=== PATIENT | female | born 1970 | race African-American/Black ===

== ENCOUNTER 2017-11-10 11:19 | Outpatient (CLI) | payer OTHER | END 2017-11-10 11:20 | disposition home or self-care (01) | LOC: DTY/OP 11:19 | PROVIDERS: ATTEND Surgery | DX: E66.01 Morbid (severe) obesity due to excess calories (principal) | CPT/HCPCS: 97802 ==

== ENCOUNTER 2018-02-02 11:30 | Inpatient (IN) | payer BC ==
[2018-02-10] MEDS ORDERED: Fentanyl 250 MCG/5 ML VIAL ONE (06:30)
[2018-02-10] MEDS ORDERED: Heparin 5,000 UNITS/ML VIAL ONE (06:44)
[2018-02-10] MEDS ORDERED: CEFAZOLIN 2 GM/50 ML BAG ONE (06:44)
[2018-02-10] MEDS ORDERED: Bupivacaine/Epinephrine 0.25% 30 ML VIAL ONE (07:18)
--- NOTE | 2018-02-10 07:46 | RAD ---
TWO VIEWS OF THE CHEST: COMPARISON: 07/20/2014. HISTORY: Preoperative radiograph. FINDINGS: Two views of the chest show normal sized cardiomediastinal silhouette. There is no evidence of consol idation, mass, or pleural effusion. The bones are unremarkable. IMPRESSION: No evidence of acute cardiopulmonary disease. POS: [facility]
--- NOTE | 2018-02-10 09:40 | OP ---
DATE OF PROCEDURE: 02/10/2018 PREOPERATIVE DIAGNOSIS: Morbid obesity with a body mass index of 56. POSTOPERATIVE DIAGNOSIS: Morbid obesity with a body mass index of 56. PROCEDURE: 1. Laparoscopic sleeve gastrectomy with [place] staple line reinforcements and 38 [place] bougie. 2. EGD. SURGEON: Dr. Chava Winters ANESTHESIA: General. ESTIMATED BLOOD LOSS: 50 mL. COMPLICATIONS: None. FINDINGS: Normal postoperative EGD. TECHNIQUE: The patient was taken to the operating room and placed supine on the table. After genera l anesthetic was obtained, arms and legs are double strapped to bariatric table. OG tube was used to decompress the stomach. The abdomen is prepped and draped in a sterile fashion. A left subcostal 5 -mm Optiview trocar was placed in the usual fashion. High-flow pneumoperitoneum was obtained. Left and right abdominal 12-mm ports as well as a right subcostal 5-mm port were placed under direct visua lization. A 5 mm incision was made at the xiphoid and Nathansen's used to raise the liver off the GE junction. The short gastrics were taken down mid body of stomach to left scarlet of the diaphragm. Le ft scarlet, posterior fundus, angle of His is completely dissected. Short gastrics were taken down to a distance of 6 cm proximal to the pylorus. OG tube was removed and the 38 bougie is brought in and i ts tip left in the antrum of the stomach. Multiple loads of an [place] stapling device are used to f orm the sleeve. The first is a green load fired up at a distance of 6 cm proximal to the pylorus ang led up towards the incisura. Multiple loads were then fired along the bougie, stomach is completely transected at the angle of His. The stomach was removed from the left abdominal incision. This fasc ial defect closing GraNee needle and Vicryl tie. No bleeding on the staple line. EGD scope was pass ed into the esophagus, stomach to the level of the duodenum without obstruction. There was no strict ure at the incisura. There is no bleeding internal or external on the staple line. EGD scope was us ed to decompress the stomach, it was pulled and removed. All port sites were infiltrating local anes thetic. The Nathansen retractor was removed under direct visualization without bleeding. All ports are removed under direct camera visualization without bleeding and pneumoperitoneum was let down. Th e Vicryl was used to close the fascial defect from the left abdominal incision. All incisions were c losed using 4-0 Monocryl and Dermabond. The patient was en route to recovery in stable condition. A ll instrument counts, needle counts, lap counts are correct.
[2018-02-10] MEDS ORDERED: Promethazine HCl 25 MG/ML VIAL SLOW IVP PRN (09:51)
[2018-02-10] MEDS ORDERED: Promethazine HCl 25 MG/ML VIAL IM PRN (09:51)
[2018-02-10] MEDS ORDERED: Ondansetron HCl/PF 4 MG/2 ML Vial IVP PRN (09:51)
[2018-02-10] MEDS ORDERED: Promethazine HCl 25 MG/ML VIAL ONE (10:33)
[2018-02-10] MEDS ORDERED: Dextrose 5% in Water 1,000 ML IV PRN (11:12)
[2018-02-10] MEDS ORDERED: Dextrose 50% Abboject 50 ML SYRINGE SLOW IVP PRN (11:12)
[2018-02-10] MEDS ORDERED: diphenhydrAMINE 50 MG/ML VIAL IVP PRN (11:12)
[2018-02-10] MEDS ORDERED: hydrALAZINE 20 MG/ML VIAL SLOW IVP PRN (11:12)
[2018-02-10 13:25] LABS: Actual Bicarbonate (HCO3a) 27.8 mEq/L (22-28); Base Excess (BEa) -1.4 mEq/L (-2.0 to +3.0); Calcium, Ionized 1.16 mmol/L (1.12-1.30); Carboxyhemoglobin (COHb) 1.3 gm% (0.0-3.0); Hemoglobin (Hb) 13.8 g/dL (12.0-16.0); O2 Tension (PaO2) 91.2 mmHg (80.0-100.0)
[2018-02-10 13:28] LABS: Puncture Site RRA; pH, Arterial 7.23 (7.35-7.45)
[2018-02-10 14:15] VITALS: BP 148/93; BMI 119.2
[2018-02-10] MEDS: Ondansetron PF 4 MG/2 ML Vial IVP PRN ×2 (14:41→22:52)
[2018-02-10] MEDS: D5 1/2 NS w/20 mEq KCL 1,000 ML IV SCH ×3 (14:41→21:31)
[2018-02-10] MEDS: Acetaminophen 1,000 MG in Premix Bag 1 BAG IVPB SCH ×3 (15:13→23:02)
[2018-02-10] MEDS ORDERED: Ondansetron PF 4 MG/2 ML Vial ONE (15:58)
[2018-02-10] MEDS ORDERED: Dexamethasone 20 MG/5 ML VIAL ONE (15:58)
[2018-02-10] MEDS ORDERED: PROPOFOL 200 MG/20 ML VIAL ONE (15:58)
[2018-02-10] MEDS ORDERED: PHENYLEPHRINE-NS 100 MCG/ML 10 ML SYRINGE ONE (15:58)
[2018-02-10] MEDS ORDERED: Glycopyrrolate 0.2 MG/ML 5 ML SYRINGE ONE (15:58)
[2018-02-10] MEDS ORDERED: Ketorolac Tromethamine 30 MG/ML VIAL ONE (15:58)
[2018-02-10] MEDS ORDERED: Lidocaine 1% PF 5 ML VIAL ONE (15:58)
--- NOTE | 2018-02-10 17:11 | CON ---
DATE OF CONSULTATION: 02/10/2018 HISTORY OF PRESENT ILLNESS: Ms. Nguyen is a 47-year-old female who was admitted for weight loss surgery. Apparently, she was somnolent post-extubation and was placed on BiPAP. I evaluated her in the recovery room. After that I was told she was coming to the intermediate care unit. It was noticed that her tidal volumes were extremely small. Blood gas showed pH 7.22, so she was subsequently admitted to the Critical Care Unit. She is being switched to [facility]. She has never been in the hospital here other than one visit to the ER in 2006. She has had multiple clinic visits. I am unable to get a past medical or family history out of her. Apparently, she has a history of hypertension according to old billing codes. PHYSICAL EXAMINATION: VITAL SIGNS: Heart rates in 80s, respiratory rates in the 20s, oximetry is 100% . She has been hypotensive post surgery. HEAD AND NECK: Unremarkable. She is somnolent. She will awake and answer questions, but only one or two words and goes back to sleep. LUNGS: Clear. HEART: Regular rhythm. ABDOMEN: Distended. EXTREMITIES: Without asymmetry. LABORATORY DATA: PH 7.23, CO2 of 68, pO2 91 on blood gas. Electrolytes were normal. CBC after surgery, white count 9.5, hemoglobin 12.7, platelets 309,000. IMPRESSION: Probable untreated sleep apnea with acute respiratory failure associated with sleep deprivation and the sedation associated with the surgery. She should gradually improve with noninvasive ventilatory support in the critical care unit. I do not feel she should be admitted to the step-down unit with the above circumstances. Critical care time 30 minutes. KULDEEP
[2018-02-10] MEDS: Promethazine HCl 25 MG/ML VIAL IM PRN ×2 (18:10→22:05)
[2018-02-10] MEDS ORDERED: Fentanyl 100 MCG/2 ML VIAL SLOW IVP PRN (18:19)
[2018-02-11] MEDS: Promethazine HCl 25 MG/ML VIAL IM PRN ×2 (03:13→07:46)
[2018-02-11] MEDS: D5 1/2 NS w/20 mEq KCL 1,000 ML IV SCH ×3 (03:27→20:36)
[2018-02-11 04:35] LABS: #Lymphocytes 1.7 thou/uL (1.20-3.40); #Neutrophils 9.5 thou/uL (1.40-6.50); %Basophils 0.2 % (0.0-1.0); %Eosinophils 0.1 % (0.0-10.0); %Lymphocytes 14.2 % (21.0-51.0); %Neutrophils 77.6 % (42.0-75.0); Hemoglobin 12.5 g/dL (12.0-16.0); Mean Corpuscular Hemoglobin 24.4 pg (27.0-31.0); Mean Corpuscular Volume 84.2 fL (78.0-98.0); Mean Platelet Volume 8.2 fL (7.4-10.4); Platelet Count 296 thou/uL (130-400); RBC Distribution Width 14.2 % (11.5-14.5); Red Blood Cell (RBC) Count 5.12 mill/uL (4.20-5.40); White Blood Cell (WBC) Count 12.3 thou/uL (4.8-10.8)
[2018-02-11 05:02] LABS: Anion Gap 13 mmol/L (10-20); BUN (Urea Nitrogen) 13 mg/dL (7.0-18.7); Calc. Creatinine Clearance 324 mL/min (70-130); Calcium 8.8 mg/dL (7.8-10.44); Carbon Dioxide 25 mmol/L (22-29); Chloride 102 mmol/L (98-107); Estimated GFR-MDRD 76; Glucose 106 mg/dL (70-105); Potassium 4.6 mmol/L (3.5-5.1); Sodium 135 mmol/L (136-145)
[2018-02-11] MEDS: Ondansetron PF 4 MG/2 ML Vial IVP PRN ×2 (05:39→14:09)
[2018-02-11] MEDS: Acetaminophen 1,000 MG in Premix Bag 1 BAG IVPB SCH (05:40)
[2018-02-11] MEDS: Pantoprazole 40 MG VIAL IVP SCH (07:46)
[2018-02-11] MEDS: Ketorolac Tromethamine 30 MG/ML VIAL IVP PRN ×2 (07:47→14:09)
[2018-02-11] MEDS: Enoxaparin Sodium 40 MG/0.4 ML SYRINGE SC SCH (07:57)
--- NOTE | 2018-02-11 12:22 | PRG ---
DATE OF SERVICE: 02/11/2018 Emely Nguyen did well. Her BiPAP was removed when she was awake yesterday evening. PHYSICAL EXAMINATION: VITAL SIGNS: Blood pressure 142/82, heart rate 94, respiratory rates in the 20s. GENERAL: She is in no distress. LUNGS: Her lungs are clear. HEART: Regular rhythm. ABDOMEN: Abdomen is soft. EXTREMITIES: Without asymmetry. IMPRESSION: 1. Respiratory depression after anesthesia for a gastric sleeve. 2. Probable undiagnosed sleep apnea. I have explained to her that she would benefit from an outpati ent sleep study. We will continue to follow.
[2018-02-11] MEDS: Hydrocodone-Acetamin 15 ML UDCUP PO PRN ×2 (14:49→22:38)
[2018-02-12] MEDS: D5 1/2 NS w/20 mEq KCL 1,000 ML IV SCH ×2 (07:42→11:16)
[2018-02-12] MEDS: Pantoprazole 40 MG VIAL IVP SCH (09:04)
[2018-02-12] MEDS: Enoxaparin Sodium 40 MG/0.4 ML SYRINGE SC SCH (09:04)
[2018-02-12 11:13] VITALS: TEMP 98.8
--- NOTE | 2018-02-12 12:56 | PRG ---
DATE OF SERVICE: 02/12/2018 PHYSICAL EXAMINATION: VITAL SIGNS: Ms. Nguyen is afebrile, heart rates in the 90s, blood pressure 120/77, respiratory rat e 20. ABDOMEN: She has no abdominal complaints. LUNGS: She denies shortness of breath. Her lungs are clear. HEART: Regular rhythm. ABDOMEN: Soft. LABORATORY: No new lab today. IMPRESSION: 1. Status post gastric sleeve procedure. 2. Postoperative hypoventilation, likely secondary to untreated sleep apnea. I have recommended that she see me within the next week or two once she has recovered from her surger y. I would be happy to make a recommendation for a sleep study at that time. It will take her month s if not over a year to lose a significant amount of weight, so she should have her sleep apnea treat ed in the meantime.
[2018-02-12] MEDS ORDERED: Simethicone Chewable 80 MG TAB PO PRN (13:35)
--- NOTE | 2018-02-12 17:19 | DIS ---
DATE OF ADMISSION: 02/10/2018 DATE OF DISCHARGE: 02/12/2018 ADMIT DIAGNOSES: Morbid obesity, sleep apnea. DISCHARGE DIAGNOSES: Morbid obesity, sleep apnea. PROCEDURE: Laparoscopic sleeve gastrectomy by Dr. Winters without complication. CONDITION AT DISCHARGE: Improved. STAFF: Dr. Chava Winters. HOSPITAL COURSE: The patient had some prolonged sedation after surgery. She went to the IMCU/CCU fo r closer monitoring. She had a BiPAP and under the care of Dr. Louis Zambrano. The first and second night while she was sleeping, patient shows evidence of sleep apnea. On postop day #2, she is doing well. She is ambulating, tolerating the liquid. She is being discharged home. Prescriptions alread y sent to her pharmacy. She will follow up with me in 2 weeks.
== END 2018-02-12 15:30 | disposition home or self-care (01) | DRG 621 ==
LOC: SURG A 02-10 05:58 → EEVIPCON 02-10 11:30 → EDSTATUS 02-10 11:30 → CCU 02-10 13:55
PROVIDERS: ADMIT Surgery; ATTEND Surgery
PROC: 0DB64Z3 Excision of Stomach, Percutaneous Endoscopic Approach, Vertical (ICD-10-PCS; principal; 2018-02-10)
PROC: 0DJ08ZZ Inspection of Upper Intestinal Tract, Via Natural or Artificial Opening Endoscopic (ICD-10-PCS; 2018-02-10)
DX: E66.01 Morbid (severe) obesity due to excess calories (principal); Z68.43 Body mass index [BMI] 50.0-59.9, adult; G47.36 Sleep related hypoventilation in conditions classified elsewhere
CPT/HCPCS: 36415; 71046; 80048; 82805; 85025; 88307; 88312; 94660; C9113; J0131; J0360; J1100; J1644; J1650; J1885; J2001; J2405; J2550; J2704; J3010

== ENCOUNTER 2018-02-02 12:36 | Outpatient (CLI) | payer BC ==
[2018-02-02 14:35] LABS: #Basophils 0.1 thou/uL (0.0-0.2); #Eosinphils 0.2 thou/uL (0.0-0.7); #Lymphocytes 2.8 thou/uL (1.20-3.40); #Monocytes 0.7 thou/uL (0.11-0.59); #Neutrophils 5.7 thou/uL (1.40-6.50); %Basophils 0.9 % (0.0-1.0); %Eosinophils 2.3 % (0.0-10.0); %Lymphocytes 29.4 % (21.0-51.0); %Monocytes 7.1 % (0.0-10.0); %Neutrophils 60.3 % (42.0-75.0); Hemoglobin 12.7 g/dL (12.0-16.0); Hypochromia SLIGHT = 6-15 cells (100X) (0-5/hpf); MDiff Complete? YES; Mean Corpuscular HGB CONC 29.4 g/dL (32.0-36.0); Mean Corpuscular Hemoglobin 24.1 pg (27.0-31.0); Mean Corpuscular Volume 81.9 fL (78.0-98.0); Mean Platelet Volume 7.6 fL (7.4-10.4); PLT Morphology Comment Appears Adequate; Platelet Count 309 thou/uL (130-400); RBC Distribution Width 14.1 % (11.5-14.5); Red Blood Cell (RBC) Count 5.25 mill/uL (4.20-5.40); White Blood Cell (WBC) Count 9.5 thou/uL (4.8-10.8)
[2018-02-02 14:39] LABS: ALT (SGPT) 12 U/L (8-55); AST (SGOT) 17 U/L (5-34); Albumin 4.2 g/dL (3.5-5.0); Alkaline Phosphatase 88 U/L (40-150); Anion Gap 11 mmol/L (10-20); BUN (Urea Nitrogen) 23 mg/dL (7.0-18.7); Bilirubin, Direct 0.1 mg/dL (0.1-0.3); Bilirubin, Total 0.2 mg/dL (0.2-1.2); Calc. Creatinine Clearance 0 mL/min (70-130); Carbon Dioxide 28 mmol/L (22-29); Chloride 103 mmol/L (98-107); Estimated GFR-MDRD 76; Glucose 91 mg/dL (70-105); Potassium 3.9 mmol/L (3.5-5.1); Protein, Total 8.2 g/dL (6.0-8.3); Sodium 138 mmol/L (136-145)
--- NOTE | 2018-02-02 17:00 | EKG ---
Test Reason : Blood Pressure : / mmHG Vent. Rate : 076 BPM Atrial Rate : 076 BPM P-R Int : 176 ms QRS Dur : 082 ms QT Int : 376 ms P-R-T Axes : 008 099 033 degrees QTc Int : 423 ms Normal sinus rhythm Rightward axis Borderline ECG When compared with ECG of 20-JUL-2014 15:41, No significant change was found Confirmed by DR. Cora SANTANA ([id number]) on 02/02/2018 5:00:44 PM Referred By: ZHEN Confirmed By:DR. Cora SANTANA
== END 2018-02-02 12:37 | disposition home or self-care (01) ==
LOC: LABBT 12:36
PROVIDERS: ATTEND Surgery
DX: Z01.818 Encounter for other preprocedural examination (principal); E66.01 Morbid (severe) obesity due to excess calories
CPT/HCPCS: 80053; 80076; 83036; 85025; 93005; 93010

== ENCOUNTER 2022-12-16 12:12 | Outpatient (CLI) | payer BC | END 2022-12-16 12:13 | disposition home or self-care (01) | LOC: BICRAD 12:12 | PROVIDERS: ATTEND Family Medicine | DX: M16.12 Unilateral primary osteoarthritis, left hip (principal) ==